=== PATIENT | female | born 1990 | race Caucasian/White ===

== ENCOUNTER 2019-11-26 15:36 | Emergency (ER) | payer SELFPAY ==
[~2019-11-26] VITALS: Ht 160 cm; Wt 68.0 kg
[2019-11-26 16:16] VITALS: BP 141/84
--- NOTE | 2019-11-26 16:16 | NUR ---
Patient ambulated to bed 4. RN evaluating patient at bedside.
--- NOTE | 2019-11-26 16:24 | NUR ---
Dr. Bradford is evaluating patient at bedside.
--- NOTE | 2019-11-26 16:27 | NUR ---
Note ruiz in EDM - 11/26/19 at 1629 by MARCELLUS 29 Y/O F C/C RIGHT SHOULDER PAIN X TODAY. PER PT PLAYING WITH KIDS AND FELL ON HER RIGHT SHOULDER. PT PRESENTS WITH LIMITED ROM. PAIN 01/15. NOT TAKEN OTC RX. PT NKA. NO HX. NO RX. NO NVD. SIDE RAIL X1.
--- NOTE | 2019-11-26 16:29 | NUR ---
ERMD AT BEDSIDE
--- NOTE | 2019-11-26 16:29 | NUR ---
RAD AT BEDSIDE
[2019-11-26] MEDS ORDERED: KETOROLAC 60 MG/2 ML VIAL IM ONE (16:30)
--- NOTE | 2019-11-26 17:17 | NUR ---
PT PLACED IN SLING, SLING ADJ. TO PT SIZE, RN NOTIFIED
[2019-11-26 17:20] VITALS: BP 136/80
== END 2019-11-26 17:20 | disposition home or self-care (01) ==
LOC: MED 15:36
DX: S46.911A Strain of unspecified muscle, fascia and tendon at shoulder and upper arm level, right arm, initial encounter (principal); W18.39XA Other fall on same level, initial encounter; Y93.89 Activity, other specified; Y92.89 Other specified places as the place of occurrence of the external cause; Y99.8 Other external cause status
CPT/HCPCS: 29105; 73030; 96372; 99283; J1885; Q0092